=== PATIENT | male | born 1995 | race Asian ===

== ENCOUNTER 2017-03-16 09:59 | Emergency (ER) | payer OTHER ==
[~2017-03-16] VITALS: Ht 173 cm; Wt 113.6 kg
[~2017-03-16 09:59] MED LIST: NO HOME MEDICATIONS; PHENERGAN 25 TA25 MG PO
[2017-03-16 10:05] VITALS: BP 133/86; TEMP 98.3
[2017-03-16] MEDS ORDERED: ZOFRAN 4MG T4 MG/TAB PO (11:45)
[2017-03-16 11:52] VITALS: PULSE 85
== END 2017-03-16 11:53 | disposition home or self-care (01) ==
LOC: COL.ER 09:59
DX: K21.9 Gastro-esophageal reflux disease without esophagitis (principal); R09.81 Nasal congestion; J02.9 Acute pharyngitis, unspecified